=== PATIENT | male | born 1975 | race Caucasian/White ===

== ENCOUNTER → 2024-09-16 | Outpatient (CLI) | payer BC, SELFPAY ==
--- NOTE | 2024-09-16 16:43 | XR_ITS ---
Examination: CT chest, without intravenous contrast. Sagittal and coronal 2-D reconstructions. Exam date and time: September 16, 2024 1657 hours INDICATIONS: CT chest January 09, 2022 2 mm pulmonary nodule posterior right midlung CTDI:vol (mGy) 14.4 DLP: (mGycm) 579 Technique: Multiple 3.0 mm axial sections of the chest to been obtained. Bone and lung density settings are obtained. Sagittal and coronal 2-D reconstructions have been obtained. Low dose protocols were performed. One or more of the following dose reduction techniques were used; automated exposure control, adjustment of the mA and/or KV according to patient size, use of iterative reconstruction technique. Findings: No thoracic aortic aneurysm dilatation Pulmonary artery segments are not enlarged No paratracheal tracheobronchial or bronchopulmonary adenopathy Stable 2 mm pulmonary nodule posterior right mid lung New 2 mm pulmonary nodule lingular segment, axial images 202 No unremarkable pneumonia or pulmonary edema No pleural disease Stable small cysts right lobe of the liver No hydronephrosis No bowel obstruction IMPRESSION: New 2 mm pulmonary nodule lingular segment left upper lobe, suggest continued 6 month follow-up CT chest without contrast
== END | disposition home or self-care (01) ==
PROVIDERS: PCP Nurse Practitioner Family; Referring Provider Nurse Practitioner Family; Visit Provider Nurse Practitioner Family
DX: R91.8 Other nonspecific abnormal finding of lung field (principal)
CPT/HCPCS: 71250